=== PATIENT | female | born 1985 | race Caucasian/White ===

== ENCOUNTER → 2020-09-27 13:12 | Outpatient (CLI) | payer OTHER, SELFPAY ==
[2020-09-27 13:58] LABS: Appearance Urine UA CLEAR; Bilirubin Urine UA NEGATIVE (NEGATIVE); Color Urine UA YELLOW; Glucose Urine UA NEGATIVE (Negative); Ketones Urine UA NEGATIVE (NEGATIVE); Leukocyte Esterase Urine UA TRACE (NEGATIVE); Nitrite Urine UA NEGATIVE (Negative); Occult Blood Urine UA TRACE-INTACT (Negative); Protein Urine UA NEGATIVE (Negative); Specific Gravity Urine UA 1.015 (1.000-1.035); Urobilinogen Urine UA 0.2 E.U./dL (0.2)
[2020-09-27 14:00] LABS: Add Manual Diff / Slide Review NO; Bacteria Urine None Seen; Basophils Absolute Auto 0 /uL (0-100); Basophils Percent Auto 0.5 % (0-2); Eosinophils Absolute Auto 100 /uL (0-450); Eosinophils Percent Auto 0.9 % (2-4); Hematocrit 44.9 % (36-46); Hemoglobin 15.6 g/dL (12.0-16.0); Lymphocytes Absolute Auto 1500 /uL (1100-4500); Lymphocytes Percent Auto 20.9 % (25-40); Mean Corpuscular HGB Conc 34.8 % (30-36); Mean Corpuscular Hemoglobin 30.4 PG (26-34); Mean Corpuscular Volume 87.2 fL (80-100); Monocytes Absolute Auto 400 /uL (0-900); Monocytes Percent Auto 6.2 % (3-14); Neutrophils Absolute Auto 5000 /uL (1500-7000); Neutrophils Percent Auto 71.5 % (50-75); Platelet Count 146 X10^3/uL (150-400); RBC Urine None Seen (0-5/HPF); Red Blood Cell Count 5.14 X10^6/uL (4.0-5.2); Red Cell Distribution Width 13.3 % (11.6-14.8)
[2020-09-27 14:05] LABS: Hemoglobin A1C% w Est Avg Glu 4.9 % (4.0-6.0)
[2020-09-27 14:21] LABS: Amorphous Sediment Urine 2+; Culture Indicated Urine Cult Not Indicated; Squamous Epithelial Cell Urine 5-10 /HPF (0-5/HPF); WBC Urine 5-10/HPF (0-5/HPF)
[2020-09-27 15:00] LABS: Glucose 73 mg/dL (70-100)
[2020-09-27 21:06] LABS: Hepatitis B Surface Antigen NEGATIVE s/c (NEGATIVE); Rubella Antibody IgG 37.5 IU/mL (>15)
[2020-09-27 21:21] LABS: HIV 1 & 2 Ab/Ag 4th Gen Combo NEGATIVE (NEGATIVE); Hep C Virus Ab w/Reflex Quant NEGATIVE s/c (NEGATIVE)
[2020-09-28 08:11] LABS: Varicella IgG Antibody 1467 index (Immune >165)
[2020-10-05 13:48] LABS: RPR Screen Non Reactive
== END ==
PROVIDERS: PCP Family Medicine; Referring Provider Family Medicine; Visit Provider Family Medicine
DX: Z34.81 Encounter for supervision of other normal pregnancy, first trimester (principal)
CPT/HCPCS: 36415; 80055; 81003; 81015; 82947; 83036; 86787; 86803; 86850; 86900; 86901; 87086; 87389

== ENCOUNTER → 2020-11-20 14:17 | Outpatient (CLI) | payer OTHER, SELFPAY ==
[2020-11-22 19:36] LABS: AFP, Serum 26.7 ng/mL (.); Calc Gestational Age Ultrasound (.); Estriol, Free 1.06 ng/mL (.); Inhibin A, Dimeric 118.82 pg/mL (.); Inhibin A, MoM 1.04 (.); Maternal Ethnicity Caucasian (.); Maternal Weight 275 lbs (.); Number of Fetuses No (.); OSBR Risk 1 IN 9231 (.); Results Report (.); Test Results *Screen Negative* (.); hCG, MoM 0.78 (.); hCG, Serum 21616 mIU/mL (.)
== END ==
PROVIDERS: PCP Family Medicine; Referring Provider Family Medicine; Visit Provider Family Medicine
DX: Z34.82 Encounter for supervision of other normal pregnancy, second trimester (principal); Z3A.16 16 weeks gestation of pregnancy
CPT/HCPCS: 36415; 82105; 82677; 84702; 86336

== ENCOUNTER → 2020-12-18 09:48 | Outpatient (CLI) | payer OTHER, SELFPAY ==
--- NOTE | 2020-12-18 09:49 | DI.US.S_ITS ---
PROCEDURE: US OB >= 14 WEEKS FETUS INDICATIONS: ANATOMIC SURVEY OUTSIDE/PRIOR DATING DATA: Last menstrual period (LMP): Unknown . LMP-based estimated date of delivery (RASHEEDA): Not applicable . First dating scan (date and location): 12/18/20 . Estimated date of delivery (RASHEEDA) from first dating scan: 05/04/21 . TECHNIQUE: Real-time scanning was performed of the fetus, with image documentation and biometric measurements. Endovaginal scanning: Not performed COMPARISON: None. FINDINGS: General: A single living intrauterine gestation is present. Presentation: Breech. Placenta: Placental position is right, fundal , without previa. Amniotic fluid index: 12.6 cm, normal range is 5-24 cm. heart rate: 155 beats per minute. Maternal cervical canal: 4.0 cm long. Normal lower limit is 2.5 cm. biometrics: Biparietal diameter: 4.9 cm, 20 weeks, five days Head circumference: 18.1 cm, 20 weeks, four days Abdominal circumference: 15.5 cm, 20 weeks, five days Femur length: 3.2 cm, 19 weeks, six days Estimated gestational age from initial scan: not applicable. Composite gestational age from present scan: 20 weeks, three days Estimated weight and percentile: 348 g, 12 oz +/-2 oz. Clinical or first-trimester gestational age not provided for comparison. Anatomic survey: Neuro: Ventricles are non-dilated at less than 10 mm. Cisterna magna is normal at 3-11 mm. Cerebellum is normal in size and morphology. Nuchal skin fold: Normal at less than 6 mm between 14-21 weeks gestational age. Face: Nose and lips, facial profile are normal. Spine: No evidence for spina bifida. Heart: 4-chambered heart is present, with normal ventricular outflow tracts. Diaphragm: Diaphragm is intact. Stomach: Left-sided stomach is present. Kidneys: No hydronephrosis. Normal is less than 5 mm in 2nd trimester, less than 7 mm in 3rd trimester. Cord: 3-vessel cord has orthotopic insertion. Bladder: Normal in size. Extremities: All 4 extremities identified. IMPRESSION: 1. Single living intrauterine with a composite gestational age of 20 weeks, three days 2. Normal anatomy. Dictated by: Mikayla Harris M.D. on 12/18/2020 at 14:40 Approved by: Mikayla Harris M.D. on 12/18/2020 at 14:48
== END ==
PROVIDERS: PCP Family Medicine; Referring Provider Family Medicine; Visit Provider Family Medicine
DX: Z34.82 Encounter for supervision of other normal pregnancy, second trimester (principal); Z3A.20 20 weeks gestation of pregnancy
CPT/HCPCS: 76811

== ENCOUNTER → 2021-02-05 09:05 | Outpatient (CLI) | payer OTHER, SELFPAY ==
[2021-02-05 11:07] LABS: Hematocrit 38.6 % (36-46)
[2021-02-05 11:22] LABS: GTT (PREG) 1 Hour PP 50gm Dose 164 mg/dL (76-139)
== END ==
PROVIDERS: PCP Family Medicine; Referring Provider Family Medicine; Visit Provider Family Medicine
DX: Z34.82 Encounter for supervision of other normal pregnancy, second trimester (principal); Z3A.24 24 weeks gestation of pregnancy
CPT/HCPCS: 36415; 82950; 85014; 85018

== ENCOUNTER → 2021-02-08 08:57 | Outpatient (CLI) | payer OTHER, SELFPAY ==
[2021-02-08 10:53] LABS: Glucose Fasting Gestational 82 mg/dL (76-95)
[2021-02-08 12:08] LABS: Glucose Tol Interp,Gestational INTERPRETATION
[2021-02-08 13:10] LABS: Glucose 2 Hour Gest 109 mg/dL (76-155)
[2021-02-08 13:13] LABS: Glucose 1 Hour Gest 176 mg/dL (76-180)
[2021-02-08 17:48] LABS: Glucose 3 Hour Gest 43 mg/dL (76-140)
== END ==
PROVIDERS: PCP Family Medicine; Referring Provider Family Medicine; Visit Provider Family Medicine
DX: Z34.90 Encounter for supervision of normal pregnancy, unspecified, unspecified trimester (principal); R73.09 Other abnormal glucose
CPT/HCPCS: 36415; 82951; 82952

== ENCOUNTER → 2021-04-08 13:36 | Outpatient (CLI) | payer OTHER, SELFPAY ==
[2021-04-09 12:00] LABS: Strep Grp B PCR NEG for Grp B Strep
== END ==
PROVIDERS: PCP Family Medicine; Visit Provider Family Medicine
DX: Z34.03 Encounter for supervision of normal first pregnancy, third trimester (principal)
CPT/HCPCS: 87653

== ENCOUNTER 2021-05-07 07:00 | Inpatient (IN) | payer OTHER, SELFPAY ==
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
[2021-05-07 08:56] LABS: Add Manual Diff / Slide Review NO; Basophils Absolute Auto 0 /uL (0-100); Basophils Percent Auto 0.5 % (0-2); Eosinophils Absolute Auto 0 /uL (0-450); Eosinophils Percent Auto 0.5 % (2-4); Hematocrit 40.4 % (36-46); Lymphocytes Absolute Auto 1100 /uL (1100-4500); Lymphocytes Percent Auto 15.5 % (25-40); Mean Corpuscular HGB Conc 34.7 % (30-36); Mean Corpuscular Volume 86.6 fL (80-100); Monocytes Absolute Auto 500 /uL (0-900); Monocytes Percent Auto 6.3 % (3-14); Neutrophils Absolute Auto 5600 /uL (1500-7000); Neutrophils Percent Auto 77.2 % (50-75); Platelet Count 137 X10^3/uL (150-400); Red Blood Cell Count 4.67 X10^6/uL (4.0-5.2); Red Cell Distribution Width 14.2 % (11.6-14.8); White Blood Cell Count 7.2 X10^3/uL (4.5-11.0)
[2021-05-07 09:09] LABS: COVID19 -Nasal RAPID Negative (Negative)
[2021-05-07] MEDS: LACTATED RINGERS 1,000 ML 100 ML IV ×2 (09:15→12:58)
[2021-05-07] MEDS: OXYTOCIN PREMIX 30 UNIT/500 ML PLAST..BAG IV (09:15)
[2021-05-07 11:43] VITALS: BP 119/77
--- NOTE | 2021-05-07 12:09 | PM.OBPNLAB ---
Date/Time Date Patient Seen: 05/07/21 Pain Control Pain control: tolerating well Pelvic Exam Dilation (cm): 3 Effacement (%): 80 station: -1 Amniotic membrane status: Ruptured Comments: Clear fluid Contractions Contractions on admission: regular Monitor mode: External Pitocin rate (mU/min): 99 Contraction pattern: Regular Contraction intensity: Mild Status status: Category l Assessment and Plan Assessment: induction ongoing Plan: begin patient augmentation Comments: Gradually increase Pitocin. Rupture of membranes with clear fluid 3 cm. heart tones are reassuring. Vital signs are stable. Ongoing management. Epidural as desired.
[2021-05-07] MEDS: FENT 2MCG/ML BUPIV 0.125% EPI 200 MCG/100 ML PLAST..BAG 14 MCG EPIDURAL (13:01)
--- NOTE | 2021-05-07 16:15 | PM.OBPNLAB ---
Date/Time Date Patient Seen: 05/07/21 Time Patient Seen: 16:15 Pain Control Pain control: tolerating well and epidural Pelvic Exam Dilation (cm): 5 Effacement (%): 80 station: -1 Amniotic membrane status: Ruptured Contractions Contractions on admission: regular Monitor mode: External Pitocin rate (mU/min): 12 Contraction frequency (min): 4 Contraction duration (min): 1 Contraction pattern: Regular Contraction intensity: Mild Status status: Category l Monitor Accelerations: Present Assessment and Plan Assessment: active labor Plan: continuous present management
[2021-05-07] MEDS: ONDANSETRON 4 MG/2 ML INJ IV (16:37)
--- NOTE | 2021-05-07 18:06 | PM.OBPRVD ---
Labor & Delivery Delivery date: 05/07/21 Narrative: Stage I of labor approximately 6 hours. Patient was admitted to the hospital with labor induction with Pitocin. Patient had reassuring heart tracing during stage I of labor category 1. Patient had Pitocin per protocol. Patient had good contractions during stage I of labor. She got up to 12 units of Pitocin. Patient had amniotomy of clear amniotic fluid and good cervical change. Patient received epidural anesthesia for pain control. Patient's GBS status was negative. Her blood pressures remain normal throughout. Baby's heart tones were reassuring. Stage II of labor. Delivery over intact perineum viable male infant. At the delivery of the head there was a nuchal cord which was easily reduced. Baby was then delivered onto mom says abdomen there was a true knot in the cord. Baby had good cry. Stage II of labor had category 1 category 2 tracing. Mom's blood pressure was normal throughout. She had good anesthetic results with her epidural. Stage III of labor. Delivery of intact placenta with three-vessel cord and repair of a second-degree midline perineal tear in the usual fashion. Afterwards mom and baby were doing well. Estimated blood loss was 350 cc.
[2021-05-08 06:54] LABS: Hematocrit 38.4 % (36-46); Hemoglobin 13.1 g/dL (12.0-16.0)
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
[2021-05-08 11:06] VITALS: BP 126/82; PULSE 79; RESP 16; TEMP 36.8
== END 2021-05-08 14:00 | disposition home or self-care (01) | DRG 807 ==
PROVIDERS: Admitting Provider Family Medicine; PCP Family Medicine; Referring Provider Family Medicine; Visit Provider Family Medicine
DX: O24.429 Gestational diabetes mellitus in childbirth, unspecified control (principal); Z37.0 Single live birth; Z3A.40 40 weeks gestation of pregnancy; O69.81X0 Labor and delivery complicated by cord around neck, without compression, not applicable or unspecified; O69.2XX0 Labor and delivery complicated by other cord entanglement, with compression, not applicable or unspecified; O70.1 Second degree perineal laceration during delivery; Z20.822 Contact with and (suspected) exposure to COVID-19; O48.0 Post-term pregnancy
CPT/HCPCS: 01967; 36415; 59400; 85014; 85018; 85025; 86850; 86900; 86901; 87635; C9803; G0379; J0171; J2405; J2590

== ENCOUNTER 2021-10-27 06:59 | Emergency (ER) | payer OTHER, SELFPAY ==
[2021-10-27 07:00] VITALS: BP 140/93; PULSE 87; RESP 18; TEMP 36.8; O2SAT 96; BMI 43.0
[2021-10-27 07:06] VITALS: BP 140/93; PULSE 93; RESP 18; O2SAT 95
[2021-10-27 07:16] VITALS: BP 124/84; PULSE 88; O2SAT 95
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
[2021-10-27 07:30] VITALS: BP 115/76; PULSE 88; RESP 18; O2SAT 95
[2021-10-27 07:55] VITALS: BP 117/81; PULSE 89; O2SAT 96
[2021-10-27 08:09] LABS: Add Manual Diff / Slide Review NO; Basophils Absolute Auto 0 /uL (0-100); Basophils Percent Auto 0.7 % (0-2); Eosinophils Absolute Auto 100 /uL (0-450); Eosinophils Percent Auto 2.7 % (2-4); Hematocrit 41.5 % (36-46); Hemoglobin 14.5 g/dL (12.0-16.0); Lymphocytes Absolute Auto 1400 /uL (1100-4500); Lymphocytes Percent Auto 30.2 % (25-40); Mean Corpuscular Hemoglobin 29.9 PG (26-34); Mean Corpuscular Volume 85.4 fL (80-100); Monocytes Absolute Auto 300 /uL (0-900); Monocytes Percent Auto 7.1 % (3-14); Neutrophils Absolute Auto 2700 /uL (1500-7000); Neutrophils Percent Auto 59.3 % (50-75); Platelet Count 131 X10^3/uL (150-400); Red Blood Cell Count 4.87 X10^6/uL (4.0-5.2); Red Cell Distribution Width 13.2 % (11.6-14.8); White Blood Cell Count 4.5 X10^3/uL (4.5-11.0)
[2021-10-27 08:16] LABS: Alanine Aminotransferase 24 IU/L (<35); Albumin 4.3 g/dL (3.5-5.0); Albumin Globulin Ratio 1.5 (1.0-2.8); Alkaline Phosphatase 68 U/L (38-126); Aspartate Aminotransferase 24 IU/L (14-36); BUN Creatinine Ratio 14.5 (6-22); Bilirubin Total 0.4 mg/dL (0.2-1.3); Blood Urea Nitrogen 12 mg/dL (7-17); Calcium 8.7 mg/dL (8.4-10.2); Carbon Dioxide 24 mmol/L (22-32); Chloride 105 mmol/L (98-107); Estimated Glomerular Filt Rate > 60 mL/min (>60); Globulin 2.9 g/dL (1.7-4.1); Glucose 121 mg/dL (70-100); HEMOLYSIS < 15 (0-50); Lipase 109 U/L (23-300); Potassium 3.9 mmol/L (3.4-5.1); Sodium 138 mmol/L (137-145); Total Protein 7.2 g/dL (6.3-8.2)
[2021-10-27 08:48] VITALS: BP 135/90; PULSE 85; RESP 18; O2SAT 98
== END 2021-10-27 08:49 | disposition home or self-care (01) ==
PROVIDERS: Emergency Provider Emergency Medicine; PCP Family Medicine
DX: K62.5 Hemorrhage of anus and rectum (principal)
CPT/HCPCS: 36415; 80053; 81003; 81025; 83690; 85025; 99283

== ENCOUNTER 2024-04-20 19:30 | Emergency (ER) | payer BC, SELFPAY ==
[2024-04-20] VITALS (8 sets, daily range): BP systolic 120–160; BP diastolic 70–95; PULSE 75–101; RESP 18; TEMP 36.9; O2SAT 97–100; BMI 42.3
--- NOTE | 2024-04-20 20:23 | DI.US.S_ITS ---
PROCEDURE: US OB <= 14 WEEKS FETUS INDICATIONS: BLEEDING OUTSIDE/PRIOR DATING DATA: Last menstrual period (LMP): 02/11/2024. LMP-based estimated date of delivery (RASHEEDA): 11/17/2024. First dating scan (date and location): 04/20/2024. Estimated date of delivery (RASHEEDA) from first dating scan: 11/26/2024. TECHNIQUE: Real-time scanning was performed of the fetus and maternal pelvic organs, with image documentation. Endovaginal scanning was also performed to better visualize the fetus and maternal ovaries. COMPARISON: None. FINDINGS: Embryo: There is a regular appearance of the pole. Young-rump length measures 1.1 cm corresponding to estimated gestational age of 7 weeks, 1 day. Heart rate: Not detected Maternal organs: Ovaries are not well visualized. IMPRESSION: Single intrauterine gestation with crown-rump length of 11 mm with no heart rate detected. Findings are diagnostic for early failure. Note: Concordant preliminary findings given to ordering ED provider by solution design and analysis manager at time of imaging completion. Approved by: Pao Villagran M.D.,Ph.D. on 04/20/2024 at 22:34
[2024-04-20 20:47] LABS: Alanine Aminotransferase 24 IU/L (<35); Albumin 4.1 g/dL (3.5-5.0); Albumin Globulin Ratio 1.3 (1.0-2.8); Alkaline Phosphatase 49 U/L (38-126); Aspartate Aminotransferase 31 IU/L (14-36); BUN Creatinine Ratio 17.1 (6-22); Bilirubin Total 0.4 mg/dL (0.2-1.3); Blood Urea Nitrogen 13 mg/dL (7-17); Calcium 9.2 mg/dL (8.4-10.2); Carbon Dioxide 25 mmol/L (22-32); Chloride 103 mmol/L (98-107); Estimated Glomerular Filt Rate > 60 mL/min (>60); Globulin 3.2 g/dL (1.7-4.1); Glucose 115 mg/dL (70-100); Sodium 136 mmol/L (137-145); Total Protein 7.3 g/dL (6.3-8.2)
[2024-04-20 20:48] LABS: HEMOLYSIS 63 (0-50)
[2024-04-20 20:49] LABS: Potassium 3.7 mmol/L (3.4-5.1)
[2024-04-20 20:55] LABS: Add Manual Diff / Slide Review NO; Basophils Absolute Auto 0 /uL (0-100); Basophils Percent Auto 0.8 % (0-2); Eosinophils Absolute Auto 200 /uL (0-450); Eosinophils Percent Auto 2.9 % (2-4); Hematocrit 41.9 % (36-46); Hemoglobin 14.4 g/dL (12.0-16.0); Lymphocytes Absolute Auto 1300 /uL (1100-4500); Lymphocytes Percent Auto 22.1 % (25-40); Mean Corpuscular HGB Conc 34.3 % (30-36); Mean Corpuscular Volume 87.6 fL (80-100); Monocytes Absolute Auto 400 /uL (0-900); Monocytes Percent Auto 6.6 % (3-14); Neutrophils Absolute Auto 4000 /uL (1500-7000); Neutrophils Percent Auto 67.6 % (50-75); Platelet Count 134 X10^3/uL (150-400); Red Blood Cell Count 4.78 X10^6/uL (4.0-5.2); Red Cell Distribution Width 13.4 % (11.6-14.8); White Blood Cell Count 5.9 X10^3/uL (4.5-11.0)
[2024-04-20 21:04] LABS: HCG Quantitative /Beta subunit 13465 mIU/mL
--- NOTE | 2024-04-20 21:35 | ED_ITS ---
HPI - General Chief complaint: Vaginal Bleeding Stated complaint: 10wks Preg, Suspects Miscarraige Time Seen by Provider: 04/20/24 21:15 Source: patient, RN notes reviewed and old records reviewed Mode of arrival: Ambulatory Limitations: no limitations History of Present Illness HPI Narrative: 10 weeks by dates started having vaginal bleeding starting yesterday initially with spotting when she would wipe or urinate today had increasing bleeding with some small clots states the blood has been dark. Went to urgent care yesterday and was diagnosed with a UTI and started oral antibiotics. Patient states today started developed cramping which she did not have present yesterday she states it feels like period cramps. Denies fevers or chills. No chest pain or shortness of breath. No nausea or vomiting. No other issues with bowel movements. No urinary symptoms such as frequency dysuria urgency. Patient states she was about 10 weeks by dates has not had an ultrasound prior to today. Has not appointment next week to be established with [facility]. Patient states she has had 2 prior pregnancies with no complications did not receive RhoGAM what those pregnancies. Prior surgeries include appendectomy. Reported allergy to penicillin. No tobacco, alcohol or recreational drugs. She states only current medications are the antibiotics she was prescribed yesterday. Patient states she did not have RhoGAM prior pregnancies. Related Data Home Medications Medication Instructions Recorded Confirmed acetaminophen 325 mg capsule 650 mg PO Q6H PRN Pain, Mild 09/26/20 11/07/21 (Tylenol) famotidine 20 mg tablet (Pepcid AC 20 mg PO DAILY 11/07/21 11/07/21 Maximum Strength) Previous Rx's Medication Instructions Recorded docusate sodium 100 mg capsule 100 mg PO DAILY #20 caps 05/08/21 ibuprofen 600 mg tablet 600 mg PO Q6HR PRN Pain, Mild 05/08/21 (1-3) #30 tabs Allergies Allergy/AdvReac Type Severity Reaction Status Date / Time Penicillins Allergy Intermediate Rash : Verified 04/20/24 19:42 last received at age 7 Review of Systems Review of Systems ROS Unobtainable: All systems reviewed & are unremarkable except as noted in HPI and below Exam Narrative Exam Narrative: GENERAL: Alert and oriented x three, well-appearing female in mild distress HEENT: Head normocephalic, atraumatic, EOMI, pupils reactive, face symmetric, moist mucous membranes NECK: Supple, full range of motion CARDIOVASCULAR: Regular rate and rhythm without murmurs, rubs or gallops. RESPIRATORY: Breath sounds equal bilaterally, no wheezes rales or rhonchi. ABDOMEN: Soft, nontender. Normoactive bowel sounds all 4 quadrants. No guarding or rebound, rigidity, no mass : No CVA tenderness EXTREMITIES: Normal range of motion, no clubbing or edema. Neurovascularly intact NEUROLOGICAL: Cranial nerves II through XII grossly intact. Moving all extremities SKIN: Warm, dry, no petechiae, no rashes or lesions. Initial Vital Signs Initial Vital Signs: Vital Signs Temperature 98.4 F 04/20/24 19:38 Pulse Rate 101 H 04/20/24 19:38 Respiratory Rate 18 04/20/24 19:38 Blood Pressure 160/95 H 04/20/24 19:38 Pulse Oximetry 98 04/20/24 19:38 Oxygen Delivery Method Room Air 04/20/24 19:38 Course Orders Ordered: ED Orders 04/20/24 19:48 Complete Blood Count AUTO DIFF Stat Comprehensive Metabolic Panel Stat HCG Quantitative /Beta subunit Stat 04/20/24 20:23 US OB <= 14 weeks fetus Stat 04/20/24 20:46 Type and Screen Stat 04/20/24 21:12 Urine Culture Stat Urine Microscopic Stat Vital Signs Vital signs: Vital Signs - 8 hr 04/20/24 19:38 04/20/24 19:46 04/20/24 20:00 Temperature 98.4 F Pulse Rate 101 H 96 H Respiratory Rate 18 Blood Pressure 160/95 H 140/79 Pulse Oximetry 98 97 Oxygen Delivery Method Room Air 04/20/24 20:00 04/20/24 20:30 04/20/24 20:30 Temperature Pulse Rate 87 87 Respiratory Rate Blood Pressure 142/81 H Pulse Oximetry 98 99 Oxygen Delivery Method Room Air 04/20/24 21:00 04/20/24 21:00 04/20/24 21:30 Temperature Pulse Rate 88 Respiratory Rate Blood Pressure 150/89 H 139/87 Pulse Oximetry 100 Oxygen Delivery Method 04/20/24 21:30 04/20/24 22:00 04/20/24 22:00 Temperature Pulse Rate 79 76 Respiratory Rate Blood Pressure 137/71 Pulse Oximetry 98 99 Oxygen Delivery Method 04/20/24 22:30 04/20/24 22:30 Temperature Pulse Rate 75 Respiratory Rate Blood Pressure 120/70 Pulse Oximetry 98 Oxygen Delivery Method MDM - OB/Uterine Contractions Lab Data 04/20/24 19:48 04/20/24 19:48 Labs: Lab Results 04/20/24 04/20/24 04/20/24 Range/Units 19:48 20:46 21:12 WBC 5.9 (4.5-11.0) X10^3/uL RBC 4.78 (4.0-5.2) X10^6/uL Hgb 14.4 (12.0-16.0) g/dL Hct 41.9 (36-46) % MCV 87.6 (80-100) fL MCH 30.0 (26-34) PG MCHC 34.3 (30-36) % RDW 13.4 (11.6-14.8) % Plt Count 134 L (150-400) X10^3/uL Neut % (Auto) 67.6 (50-75) % Lymph % (Auto) 22.1 L (25-40) % [place] % (Auto) 6.6 (3-14) % Eos % (Auto) 2.9 (2-4) % Baso % (Auto) 0.8 (0-2) % Neut # (Auto) 4000 (5186-9384) /uL Lymph # (Auto) 1300 (7831-1646) /uL [place] # (Auto) 400 (0-900) /uL Eos # (Auto) 200 (0-450) /uL Baso # (Auto) 0 (0-100) /uL Sodium 136 L (137-145) mmol/L Potassium 3.7 (3.4-5.1) mmol/L Chloride 103 (98-107) mmol/L Carbon Dioxide 25 (22-32) mmol/L BUN 13 (7-17) mg/dL Creatinine 0.76 (0.52-1.04) mg/dL Estimated GFR > 60 (>60) mL/min BUN/Creatinine Ratio 17.1 (6-22) Glucose 115 H (70-100) mg/dL Calcium 9.2 (8.4-10.2) mg/dL Total Bilirubin 0.4 (0.2-1.3) mg/dL AST 31 (14-36) IU/L ALT 24 (<35) IU/L Alkaline Phosphatase 49 (38-126) U/L Total Protein 7.3 (6.3-8.2) g/dL Albumin 4.1 (3.5-5.0) g/dL Globulin 3.2 (1.7-4.1) g/dL Albumin/Globulin Ratio 1.3 (1.0-2.8) HCG, Quant 59064 mIU/mL Urine RBC 30-100/hpf H (0-5/HPF) Urine WBC 1-5/hpf (0-5/HPF) Ur Squamous Epith Cells 1-5 /hpf (0-5/HPF) Urine Bacteria Few (2-10) H (None) Ur Culture Indicated? Cult not indicated Vol Urine Centrifuged 10ml (spun) Blood Type O Positive Antibody Screen Negative Urine Dip Bedside Urine Glucose Negative Bedside Urine Bilirubin - Negative Bedside Urine Ketone - Negative Urine Specific [place] 1.020 Bedside Urine Occult Blood +++ Bedside Urine pH 6.0 Bedside Urine Protein +/- 15 Bedside Urine Urobilinogen - Negative Bedside Urine Nitrite - Negative Bedside Urine Leukocytes + 70 Esterase Imaging Data US - OB: Radiologist's Impression: Close Ultrasound (Signed) Pao Villagran - 04/20/24 DI Result CC 05/02/21 Ultrasound (Signed) Mikayla Harris - 12/18/20 Launch?[place] [address] Ultrasound Report Signed Patient: Esperanza Cleaning MR#: [id number] : 1985 Acct:[id number] Age/Sex: 39 / F Date of Service: 04/20/24 Loc: ED Accession Number: [id number] Procedure: US OB <= 14 weeks fetus Ordering Provider: Gale Balderas D.O. PROCEDURE: US OB <= 14 WEEKS FETUS INDICATIONS: BLEEDING OUTSIDE/PRIOR DATING DATA: Last menstrual period (LMP): 02/11/2024. LMP-based estimated date of delivery (RASHEEDA): 11/17/2024. First dating scan (date and location): 04/20/2024. Estimated date of delivery (RASHEEDA) from first dating scan: 11/26/2024. TECHNIQUE: Real-time scanning was performed of the fetus and maternal pelvic organs, with image documentation. Endovaginal scanning was also performed to better visualize the fetus and maternal ovaries. COMPARISON: None. FINDINGS: Embryo: There is a regular appearance of the pole. Mascot-rump length measures 1.1 cm corresponding to estimated gestational age of 7 weeks, 1 day. Heart rate: Not detected Maternal organs: Ovaries are not well visualized. IMPRESSION: Single intrauterine gestation with crown-rump length of 11 mm with no heart rate detected. Findings are diagnostic for early failure. Note: Concordant preliminary findings given to ordering ED provider by wrister at time of imaging completion. Approved by: Pao Villagran M.D.,Ph.D. on 04/20/2024 at 22:34 MDM Narrative Medical decision making narrative: 39-year-old female approximately 10 weeks by dates positive patient has had vaginal bleeding and abdominal cramping starting yesterday and into today. Patient had workup to rule out ectopic. White blood cell count of 5.9 hemoglobin of 14 platelets of 134. Sodium is 136 potassium 3.7 electrolytes are otherwise appropriate creatinine 0.76 glucose of 115 LFTs are negative hCG quantitative is 13,465. Point of care urine shows blood negative for nitrates positive for leukocyte esterase. Microscopy Patient is O positive. OB ultrasound single intrauterine gestation corresponds to estimated gestational age of 7 weeks 1 day heart rate is not detected ovaries are not well visualized. Patient discussed her findings ovaries are not well visualized but ectopic is much lower based on her ultrasound findings. Discussed likely having a very early miscarriage we will give referral to Gynecology to follow-up discussed she should follow up shortly expected course of her current situation and return precautions. All questions were answered/ Discharge Plan Departure Patient Disposition: Home Clinical Impression: Vaginal bleeding in Instructions: DI for Miscarriage Activity Restrictions/Additional Instructions: Please follow-up for recheck and repeat evaluation. Please call tomorrow to set up follow-up for recheck contacts included below. Your ultrasound findings today to not show heartbeat and size would be consistent with dates of 7 weeks I suspect you are having a miscarriage but you do need to follow up. You can take acetaminophen up to a 1000 mg every 6 hours as needed for pain. Please return for any fevers new abdominal, back or flank pain, bleeding more than 1 pad an hour, lightheadedness or passing out or other new or concerning changes. Prescriptions: No Action famotidine [Pepcid AC Maximum Strength] 20 mg tablet 20 mg PO DAILY acetaminophen [Tylenol] 325 mg capsule 650 mg PO Q6H PRN (Reason: Pain, Mild) docusate sodium 100 mg Capsule 100 mg PO DAILY Qty: 20 0RF ibuprofen 600 mg Tablet 600 mg PO Q6HR PRN (Reason: Pain, Mild (1-3)) Qty: 30 0RF Referrals: Nancy Rodriguez MD [Physician] - Patrick Stratton MD [Primary Care Provider] - Stand Alone Forms: Patient Portal/API/Survey
[2024-04-20 21:43] LABS: Bacteria Urine Few (2-10); Culture Indicated Urine Cult Not Indicated; RBC Urine 30-100/HPF (0-5/HPF); Squamous Epithelial Cell Urine 1-5 /HPF (0-5/HPF); Urine Volume 10mL (spun); WBC Urine 1-5/HPF (0-5/HPF)
== END 2024-04-20 22:56 | disposition home or self-care (01) ==
PROVIDERS: Emergency Provider Emergency Medicine; PCP Family Medicine
DX: O20.9 Hemorrhage in early pregnancy, unspecified (principal); Z3A.10 10 weeks gestation of pregnancy
CPT/HCPCS: 36415; 76801; 76817; 80053; 81003; 81015; 84702; 85025; 86850; 86900; 86901; 87086; 99283; 99284

== ENCOUNTER 2024-04-22 07:21 | Emergency (ER) | payer OTHER, SELFPAY ==
[2024-04-22] VITALS (9 sets, daily range): BP systolic 111–131; BP diastolic 67–80; PULSE 82–96; RESP 16; TEMP 36.7; O2SAT 96–99; BMI 42.3
--- NOTE | 2024-04-22 07:24 | DI.US.S_ITS ---
PROCEDURE: US PELVIC COMPLETE INDICATIONS: eval for retained POC TECHNIQUE: Real-time scanning was performed of the pelvic organs, with image documentation. Additional endovaginal scanning was necessary due to incomplete visualization of the adnexal and endometrial structures by transabdominal scanning. COMPARISON: None. FINDINGS: Uterus: Uterus is anteverted and normal in size at 11.4 x 6.9 x 6.9 cm. The myometrium is homogeneous. The endometrium measures 28 mm combined thickness. Increased vascularity and heterogeneous appearance of the endometrium. Ovaries: The right ovary measures 4.8 x 2.5 x 2.4 cm, with a calculated ovarian volume of 15 cc. The left ovary measures 3.1 x 2.7 x 1.8 cm, with a calculated ovarian volume of 7.9 cc. The ovaries have a normal sonographic appearance. Less than 12 follicles can be seen in each ovary. No adnexal masses are seen. Other: No pathologic free abdominal or pelvic fluid. IMPRESSION: The endometrium is thickened, heterogeneous and vascular. Findings are concerning for retained products of conception. Accurate primary report sent to ordering provider by the technologist at the time of exam. We strive to produce accurate, complete, and clear reports of imaging services. To assist us in improving patient care, this report was composed using standard report templates and voice recognition software. Therefore, it may contain abnormal punctuation, insertions and/or omissions. Occasional wrong-word or sound-alike substitutions may occur. Though we review the report and make efforts to correct it, we do recommend that the report be read carefully in proper context to recognize any text inaccuracies. Dictated by: Suresh Mckay M.D. on 04/22/2024 at 8:35 Approved by: Suresh Mckay M.D. on 04/22/2024 at 8:36
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
--- NOTE | 2024-04-22 08:00 | PC.NURSE ---
patient reports 10 weeks gestation A0; Vaginal Bleeding started 04/18/24 and seen here in ER w/US measuring 7 weeks, no heart rate Returned as instructed for increased vaginal bleeding, Starting this AM reports 2-3 overnight pads per hour soaked/changing with mulitiple large clots; Previously only 1 per hour without the large clots; for regular cycle does not have any clots and maximum of 1 pad per hour. Both previous to full term with gestational diabetes during the for oldest child. Skin warm dry with decreased turgor. Reports some pelvic/abdominal cramping/
[2024-04-22 08:35] LABS: Add Manual Diff / Slide Review NO; Basophils Absolute Auto 0 /uL (0-100); Basophils Percent Auto 0.4 % (0-2); Eosinophils Absolute Auto 100 /uL (0-450); Eosinophils Percent Auto 2.3 % (2-4); Hematocrit 42.5 % (36-46); Hemoglobin 14.5 g/dL (12.0-16.0); Lymphocytes Absolute Auto 1100 /uL (1100-4500); Lymphocytes Percent Auto 17.7 % (25-40); Mean Corpuscular HGB Conc 34.1 % (30-36); Mean Corpuscular Hemoglobin 29.7 PG (26-34); Mean Corpuscular Volume 87.1 fL (80-100); Monocytes Absolute Auto 400 /uL (0-900); Neutrophils Absolute Auto 4500 /uL (1500-7000); Neutrophils Percent Auto 73.6 % (50-75); Platelet Count 129 X10^3/uL (150-400); Red Blood Cell Count 4.88 X10^6/uL (4.0-5.2); Red Cell Distribution Width 13.7 % (11.6-14.8); White Blood Cell Count 6.1 X10^3/uL (4.5-11.0)
[2024-04-22 08:45] LABS: Blood Urea Nitrogen 8 mg/dL (7-17); Calcium 8.8 mg/dL (8.4-10.2); Carbon Dioxide 23 mmol/L (22-32); Chloride 105 mmol/L (98-107); Estimated Glomerular Filt Rate > 60 mL/min (>60); Glucose 113 mg/dL (70-100); HEMOLYSIS < 15 (0-50); Potassium 3.8 mmol/L (3.4-5.1); Sodium 135 mmol/L (137-145)
[2024-04-22 09:03] LABS: HCG Quantitative /Beta subunit 7349.8 mIU/mL
== END 2024-04-22 09:27 | disposition home or self-care (01) ==
PROVIDERS: Emergency Provider Emergency Medicine; PCP Family Medicine
DX: O03.4 Incomplete spontaneous abortion without complication (principal)
CPT/HCPCS: 36415; 76830; 76856; 80048; 84702; 85025; 86850; 86870; 86900; 86901; 99284